=== PATIENT | male | born 1965 | race Hispanic/Latino ===

== ENCOUNTER 2019-01-06 06:12 | Emergency (ER) | payer OTHER ==
[2019-01-06] MEDS ORDERED: KETOROLAC TROMETHAMINE 30MG/ML ONE (06:38)
[2019-01-06] MEDS ORDERED: DiphenhydrAMINE HCL 50 MG/ML VIAL ONE (06:38)
[2019-01-06] MEDS ORDERED: PROCHLORPERAZINE EDISYLATE 10 MG/2 ML VIAL ONE (06:38)
== END 2019-01-06 07:27 | disposition home or self-care (01) ==
LOC: EDH 06:12
DX: R51 Headache (principal)
CPT/HCPCS: 96374; 96375; 99284; J0780; J1200; J1885